=== PATIENT | female | born 1940 | race Caucasian/White ===

== ENCOUNTER → 2021-10-22 12:18 | Outpatient (BNVA) | payer MEDICARE, SELFPAY | PROVIDERS: Visit Provider Emergency Medicine | DX: M19.041 Primary osteoarthritis, right hand (principal); M79.644 Pain in right finger(s) | CPT/HCPCS: 73130 ==

== ENCOUNTER 2022-11-20 12:11 | Emergency (ER) | payer MEDICARE, SELFPAY ==
[2022-11-20 12:33] VITALS: BMI 30.7
[2022-11-20 12:36] VITALS: PULSE 68; RESP 18; O2SAT 98
--- NOTE | 2022-11-20 12:40 | W.ED.FALL ---
HPI - Fall General: Chief Complaint: Fall Stated Complaint: physician sent, fall, hit head Time Seen by Provider: 11/20/22 12:33 Source: patient Mode of arrival: ambulatory Limitations: no limitations History of Present Illness: Patient is a very nice 82-year-old female presents to ED today with a complaint of a fall injury that she sustained 3 days ago. She states she was seated trying to put on a pair of socks when her foot slipped out from underneath her causing her to fall backward striking her head on the toilet and falling onto her buttocks. She noticed a fairly significant posterior scalp hematoma that she states has improved in size. She complains of a minor headache. Her main complaint seems to be more sacral pain and bilateral hip pain. Patient is ambulatory with the help of a walker. She has not noticed any numbness, tingling, loss of sensation to her groin or lower extremities. She has not noticed any ecchymosis. She denies lightheadedness, dizziness, presyncope, or syncopal episodes. MD complaint: fall Onset (ago): day(s) Fall from: chair Fall witnessed: yes, by family Place fall occurred: home Loss of consciousness: None Prolonged down time: no Symptoms prior to fall: none Context: tripped/slipped Location of injury: head, back and other (bilateral hips) Associated symptoms-after fall: Reports difficulty walking (secondary to pain) and headache(s); Denies abdominal pain, chest pain, confusion, neck pain or vertigo Review of Systems Const: Denies: fever(s), chills, body aches, fatigue or malaise Card: Denies: chest pain Resp: Denies: dyspnea GI: Denies: abdominal pain : Denies: flank pain, difficulty voiding, dysuria, urinary frequency, urinary urgency or urinary hesitancy Musc: Reports: joint pain (bilateral hip); Denies: neck pain, back pain, extremity pain, extremity swelling or joint swelling Neuro: Reports: headache(s) and difficulty walking (secondary to pain); Denies: numbness in extremities, weakness in extremities, sensory changes, lack of coordination, frequent falls, dizziness, vertigo or confusion PFS ED PFSH: Social History Smoking and tobacco status: never smoked Female Reproductive History: Spontaneous abortions: No Physical Exam Const: COMMON NORMALS: no acute distress, average body habitus, patient oriented x3, no limitations, healthy appearing, alert and well nourished ORIENTATION/CONSCIOUSNESS: Yes awake, Yes oriented to person, Yes oriented to place and Yes oriented to time HENMT: COMMON NORMALS: normocephalic and TM's normal bilaterally HEAD & SCALP: normal to inspection, normocephalic and hematoma; no Doyle's sign, no laceration and no palpable skull fracture HEAD IMAGES: 1. hematoma FACE & SINUS: normal facial exam TYMPANIC MEMBRANE: TM's normal bilaterally Eye: COMMON NORMALS: Equal, round and reactive pupils present and EOMs intact bilaterally GENERAL EYE: appearance normal, both eyes and all related structures and normal light reflex PUPIL: Yes Equal, round and reactive pupils present DIRECT OPHTHALMOSCOPY: Yes normal light reflex Neck/C-Spine: COMMON NORMALS: full ROM GENERAL: Yes normal visual inspection CERVICAL SPINE: Yes cervical ROM normal, No Cervical spine tenderness and No step off deformity Resp: COMMON NORMALS: normal respiratory effort and clear to auscultation bilaterally AUSCULTATION: clear to auscultation bilaterally Cardio: COMMON NORMALS: regular rate and regular rhythm RATE: regular rate RHYTHM: regular rhythm Back/Pelvis: COMMON NORMALS: thoracic and lumbar spine normal to inspection, no thoracic nor lumbar tenderness and thoraco-lumbar ROM normal PELVIS: Yes buttocks normal and No sciatic notch tenderness SACROILIAC JOINTS: Yes SI joints normal SACRUM: tenderness COCCYX: no tenderness Extremity: COMMON NORMALS: normal to inspection GENERAL: Yes normal exam except as noted Neuro: CHANDRIKA COMA SCALE: document [facility] findings [place] coma scale eye opening: Spontaneous [place] coma scale verbal response: Orientated Chandrika coma scale motor response: Obey commands [place] coma scale total score: 15 COMMON NORMALS: patient oriented x3 SENSORIUM/ORIENTATION: Yes alert, Yes oriented to person, Yes oriented to place and Yes oriented to time MOTOR EXAM: 5/5 motor strength present throughout Skin: COMMON NORMALS: no rashes or lesions noted GENERAL SKIN EXAM: no rashes or lesions noted TRAUMA: no lacerations or abrasions Course Consultations: Consultation #1: Dr. Pappas-can use walker as needed, pain control, can follow up in office Vital Signs: Vital signs: Vital Signs Pulse Rate 68 11/20/22 12:36 Respiratory Rate 16 11/20/22 14:00 Pulse Oximetry 94 11/20/22 14:00 Oxygen Delivery Me thod Room Air 11/20/22 14:00 MDM - Fall Medical Decision Making Patient is a nice 82-year-old female here following a fall 3 days ago. She did states she struck the back of her head on the toilet seat. She does have a small scalp hematoma. Head CT is negative. Patient on exam did have tenderness to her sacrum and complained of some bilateral hip pain although had good range of motion of these areas. On pelvis CT she has a nondisplaced transverse anterior sacral fracture at S3. Spoke to Dr. Pappas who recommends pain control, she can bear weight as tolerated with use of her walker, and he will follow-up in office. Return to ED precautions given. She declines prescription pain medication. Lab Data Radiology Impressions Head CT 11/20/22 13:17 IMPRESSION: No intracranial injury or calvarial fracture. Pelvis CT 11/20/22 13:17 IMPRESSION: 1. Nondisplaced transverse anterior sacral fracture at S3. 2. Intact pelvis and hips. Discharge Plan Discharge Patient Disposition: Home Clinical Impression: Closed sacral fracture Qualifiers: Encounter type: initial encounter Zone of sacrum fracture: unspecified portion of sacrum Qualified Code(s): S32.10XA - Unspecified fracture of sacrum, initial encounter for closed fracture Condition: Stable Prescriptions: No Action multivitamin Tablet 1 tab PO DAILY latanoprost 0.005 % drops 1 drp ophthalmic (eye) BEDTIME Aspir-81 81 mg Tablet,Delayed Release (Dr/Ec) 81 mg PO DAILY Calcium 500 500 mg calcium (1,250 mg) Tablet 500 mg PO TID nifedipine 90 mg tablet extended release 24hr 90 mg PO QAM omeprazole 20 mg capsule,delayed release(DR/EC) 20 mg PO QAM pravastatin 20 mg tablet 20 mg PO BEDTIME albuterol sulfate 90 mcg/actuation Hfa Aerosol Inhaler 2 puff INHALATION QID PRN (Reason: Shortness Of Breath) losartan 100 mg tablet 100 mg PO QAM levothyroxine 112 mcg tablet 112 mcg PO QAM Ramez 128 2 % Drops 1 drp OPHTHALMIC (EYE) BID Vitamin D3 25 mcg (1,000 unit) Tablet 1,000 unit PO QAM Devine 3 Fish Oil 684-1,200 mg Capsule,Delayed Release(Dr/Ec) 1 cap PO DAILY [facility] 1 tab PO DAILY Discharge Orders: Discharge ED (Routine); Ordered 11/20/22 Ordered By: Elyse Juan Referrals: Carlyn Moya MD [Primary Care Provider] - Patient Instructions: Sacral Fracture (ED) Activity Restrictions/Additional Instructions: As discussed case management should reach out to you shortly to help set you up with your follow-up appointment with Dr. Pappas who is our orthopedic design specialist. You have declined prescription pain medication. You need to seek medical reevaluation if pain worsens or is not controlled with [id number] pain medication, if you begin having severe numbness/tingling/loss of sensation to your lower extremity, or if you begin experiencing bowel or bladder incontinence/retention. Coding Level of Care Code ED Housecleaner Floor for Salina Weaver
[2022-11-20 13:00] VITALS: RESP 16
--- NOTE | 2022-11-20 13:17 | CTR_ITS ---
PROCEDURE INFORMATION: Exam: CT Head Without Contrast Exam date and time: 11/20/2022 1:49 PM Age: 82 years old Clinical indication: Injury or trauma; Fall; Blunt trauma (contusions or hematomas); Additional info: Fall, struck head TECHNIQUE: Imaging protocol: Computed tomography of the head without contrast. Radiation optimization: All CT scans at this facility use at least one of these dose optimization techniques: automated exposure control; mA and/or kV adjustment per patient size (includes targeted exams where dose is matched to clinical indication); or iterative reconstruction. REPORTING DATA: Count of CT and Cardiac NM exams in prior 12 months: This patient has received 0 known CTs and 0 known cardiac nuclear medicine studies in the 12 months prior to the current study. COMPARISON: No relevant prior studies available. RADIATION DOSE METRICS: Total DLP (mGy-cm): 974.81 FINDINGS: Brain: No acute appearing brain parenchymal abnormality. No intracranial hemorrhage. No extraaxial fluid collections. There is mild diffuse cerebral atrophy. There are mild white matter low attenuation changes potentially related to chronic small vessel disease. Cerebral ventricles: No hydrocephalus when allowing for the atrophy. Paranasal sinuses: The visualized paranasal sinuses are aerated. Mastoid air cells: Minimal right mastoid air cell effusions. The left mastoid air cells are aerated. Bones/joints: No calvarial fracture. There is hyperostosis frontalis interna. Soft tissues: No acute soft tissue abnormality. CT/CT head wo con* [id number] IMPRESSION: No intracranial injury or calvarial fracture.
--- NOTE | 2022-11-20 13:17 | CTR_ITS ---
PROCEDURE INFORMATION: Exam: CT Pelvis Without Contrast; Skeletal Exam date and time: 11/20/2022 1:52 PM Age: 82 years old Clinical indication: Injury or trauma; Fall; Blunt trauma (contusions or hematomas); Bilateral; Hip and pelvic region; Additional info: Sacral pain, bilateral hip, pelvis pain following fall TECHNIQUE: Imaging protocol: Computed tomography of the pelvis without contrast. Exam focused on the skeleton. Radiation optimization: All CT scans at this facility use at least one of these dose optimization techniques: automated exposure control; mA and/or kV adjustment per patient size (includes targeted exams where dose is matched to clinical indication); or iterative reconstruction. REPORTING DATA: Count of CT and Cardiac NM exams in prior 12 months: This patient has received 0 known CTs and 0 known cardiac nuclear medicine studies in the 12 months prior to the current study. COMPARISON: No relevant prior studies available. RADIATION DOSE METRICS: Total DLP (mGy-cm): 402.46 FINDINGS: Intraperitoneal space: No intraperitoneal free fluid. No sign of bleeding in the pelvis. Bones/joints: There is mild degenerative disease in the lower lumbar spine. There is a nondisplaced fracture traversing the upper S3 sacral body. No fracture through posterior elements is visible. The coccyx is unremarkable. SI joints are normal. The pelvis is intact. The proximal femora are intact. Femoroacetabular alignment is normal. Joint spaces are preserved. Small bilateral acetabular osteophytes. Soft tissues: Pelvic musculature is unremarkable. There is mild presacral edema. CT/CT bony pelvis [id number] IMPRESSION: 1. Nondisplaced transverse anterior sacral fracture at S3. 2. Intact pelvis and hips.
[2022-11-20 14:00] VITALS: RESP 16; O2SAT 94
[2022-11-20 15:17] VITALS: RESP 16; O2SAT 98
--- NOTE | 2022-11-20 15:22 | DCPLANNER ---
Addendum entered by Imelda Walton 12/03/22 15:16: Patient did attend appointment scheduled with ortho Addendum entered by Imelda Walton 11/21/22 11:31: Patient has a follow up appointment scheduled for November at 3:[address] Pappas at ortho. Original Note: senior site manager had message to schedule a follow up appointment for patient with ortho. senior site manager sent patients information to the front office staff at ortho. Patients information will be printed and reviewed. Clinic will call patient with appointment information.
== END 2022-11-20 15:18 | disposition home or self-care (01) ==
PROVIDERS: Emergency Provider Physician Assistant; PCP Family Medicine
DX: S32.10XA Unspecified fracture of sacrum, initial encounter for closed fracture (principal); Z79.899 Other long term (current) drug therapy; Z79.82 Long term (current) use of aspirin; W22.8XXA Striking against or struck by other objects, initial encounter
CPT/HCPCS: 70450; 72192; 99284

== ENCOUNTER → 2022-11-28 15:49 | Outpatient (BNVA) | payer MEDICARE, SELFPAY | PROVIDERS: PCP Family Medicine; Referring Provider Physician Assistant; Visit Provider Orthopaedic Surgery | DX: S32.130A Nondisplaced Zone III fracture of sacrum, initial encounter for closed fracture (principal); W19.XXXA Unspecified fall, initial encounter | CPT/HCPCS: 72170; 72220; 99203 ==

== ENCOUNTER → 2023-01-14 08:12 | Outpatient (BNVA) | payer MEDICARE, SELFPAY | PROVIDERS: PCP Family Medicine; Visit Provider Orthopaedic Surgery | DX: S32.10XD Unspecified fracture of sacrum, subsequent encounter for fracture with routine healing (principal); X58.XXXD Exposure to other specified factors, subsequent encounter | CPT/HCPCS: 72220; 99213 ==

== ENCOUNTER → 2023-02-25 08:27 | Outpatient (BNVA) | payer MEDICARE, SELFPAY | PROVIDERS: PCP Family Medicine; Visit Provider Orthopaedic Surgery | DX: S32.10XD Unspecified fracture of sacrum, subsequent encounter for fracture with routine healing (principal); X58.XXXD Exposure to other specified factors, subsequent encounter; M46.1 Sacroiliitis, not elsewhere classified | CPT/HCPCS: 72202; 99213 ==